=== PATIENT | female | born 1975 | race Caucasian/White ===

== ENCOUNTER 2017-01-22 15:19 | Inpatient (IN) | payer BC ==
[~2017-01-22] VITALS: Ht 160 cm; Wt 106.2 kg
[~2017-01-22 15:19] MED LIST: HYCODAN SYRUP480 ML PO; NAPROXEN500 MG PO; NORCO 5/3251 TABLET PO; ZITHROMAX250 MG PO
[2017-01-22 16:28] LABS: HEMATOCRIT 40.4 % (36.0-46.0); MCH 30.6 PG (29.0-34.0); MCHC 34.2 G/DL (30.0-36.0); MCV 89.6 FL (83-99); MEAN PLAT.VOLUME 11.3 uM^3 (9.5-12.4); PLATELET COUNT 193 K/uL (156-360); RBC DIS.WIDTH-CV 13.1 % (11.8-14.6); RBC DIS.WIDTH-SD 41.9 % (39-53); RED BLOOD COUNT 4.51 M/uL (3.80-5.20); WHITE BLOOD COUNT 16.6 K/uL (4.1-10.2)
[2017-01-22 16:42] LABS: CHLORIDE 106 mEq/L (99-109); POTASSIUM 3.9 mEq/L (3.7-5.4); SODIUM 141 mEq/L (136-147)
[2017-01-22 16:44] LABS: GLUCOSE 109 mg/dL (70-99)
[2017-01-22 16:46] LABS: ANION GAP 9 MEQ/L (2-14)
[2017-01-22 16:48] LABS: GFR ESTIMATE (CALCULATED) > 59 mL/min/
[2017-01-22 16:53] LABS: TROP-I INTERPRETATION NEGATIVE; TROPONIN-I 0.04 ng/mL (0.0-0.30)
[2017-01-22 17:24] LABS: UREA NITROGEN (BUN) 12 mg/dL (9-23)
[2017-01-22 17:33] LABS: QUANTITATIVE HCG < 4.0 MIU/ML
[2017-01-22 22:13] VITALS: BP 118/55
[2017-01-22 22:45] LABS: TROP-I INTERPRETATION NEGATIVE; TROPONIN-I 0.07 ng/mL (0.0-0.30)
[2017-01-23] VITALS (21 sets, daily range): BP systolic 119–163; BP diastolic 51–98
[2017-01-23 03:01] LABS: HEMATOCRIT 40.9 % (36.0-46.0); MCH 30.6 PG (29.0-34.0); MCHC 33.7 G/DL (30.0-36.0); MCV 90.7 FL (83-99); MEAN PLAT.VOLUME 11.7 uM^3 (9.5-12.4); PLATELET COUNT 211 K/uL (156-360); RBC DIS.WIDTH-CV 13.3 % (11.8-14.6); RBC DIS.WIDTH-SD 43.1 % (39-53); RED BLOOD COUNT 4.51 M/uL (3.80-5.20); WHITE BLOOD COUNT 15.4 K/uL (4.1-10.2)
[2017-01-23 03:12] LABS: PTT 27.4 (25-32)
[2017-01-23 03:14] LABS: CHLORIDE 106 mEq/L (99-109); POTASSIUM 4.3 mEq/L (3.7-5.4); SODIUM 139 mEq/L (136-147)
[2017-01-23 03:15] LABS: MAGNESIUM 2.1 mg/dL (1.3-2.7)
[2017-01-23 03:17] LABS: GLUCOSE 119 mg/dL (70-99)
[2017-01-23 03:18] LABS: ANION GAP 8 MEQ/L (2-14)
[2017-01-23 03:19] LABS: TOTAL BILIRUBIN 0.8 mg/dL (0.0-1.0)
[2017-01-23 03:20] LABS: ALKALINE PHOSPHATASE 63 IU/L (3-129)
[2017-01-23 03:21] LABS: GFR ESTIMATE (CALCULATED) > 59 mL/min/
[2017-01-23 03:22] LABS: TROP-I INTERPRETATION NEGATIVE; TROPONIN-I 0.09 ng/mL (0.0-0.30)
[2017-01-23 03:22] LABS: UREA NITROGEN (BUN) 11 mg/dL (9-23)
[2017-01-23 05:54] LABS: METH RESISTANT S AUREUS PCR NEGATIVE (NEGATIVE)
[2017-01-23 05:55] LABS: PROBE CHECK PASS; SPECIMEN PROCESSING CONTROL PASS
[2017-01-23 08:35] LABS: FASTING STATUS FASTING
[2017-01-23 09:02] LABS: HDL CHOLESTEROL 32 MG/DL (Desirable>=50); LDL CHOLESTEROL 109 mg/dL (Desirable<100); NON-HDL CHOLESTEROL 166 mg/dL (Desirable<160); TOTAL CHOLESTEROL 198 mg/dL (Desirable<200); TRIGLYCERIDES 286 MG/DL (Normal: <150)
[2017-01-23 09:29] LABS: CREATINE KINASE 100 IU/L (1-294); TOTAL CK 100 IU/L (1-294)
[2017-01-23 09:33] LABS: TROP-I INTERPRETATION NEGATIVE; TROPONIN-I 0.12 ng/mL (0.0-0.30)
[2017-01-23 09:34] LABS: CK-MB 1.8 ng/mL (0.0-4.9)
[2017-01-23 19:50] LABS: CREATINE KINASE 103 IU/L (1-294); TOTAL CK 103 IU/L (1-294)
[2017-01-23 19:55] LABS: TROP-I INTERPRETATION NEGATIVE; TROPONIN-I 0.23 ng/mL (0.0-0.30)
[2017-01-23 20:12] LABS: CK-MB 2.3 ng/mL (0.0-4.9)
[2017-01-24] VITALS (12 sets, daily range): BP systolic 129–169; BP diastolic 61–91
[2017-01-24 08:04] LABS: Estimated Average Glucose 126 mg/dL (70-123)
[2017-01-24 08:45] LABS: TROP-I INTERPRETATION NEGATIVE; TROPONIN-I 0.15 ng/mL (0.0-0.30)
[2017-01-24 08:49] LABS: CREATINE KINASE 103 IU/L (1-294); TOTAL CK 103 IU/L (1-294)
[2017-01-24 09:17] LABS: CK-MB 1.3 ng/mL (0.0-4.9)
[2017-01-24] MEDS ORDERED: ASPIR 8181 M1 PO (11:40)
[2017-01-24] MEDS ORDERED: EFFIENT10 MG PO (11:40)
[2017-01-24] MEDS ORDERED: LISINOPRIL10 MG PO (11:40)
[2017-01-24] MEDS ORDERED: ATORVASTATIN CA40 MG PO (11:40)
[2017-01-24] MEDS ORDERED: LOPRESSOR25 MG PO (11:40)
[2017-01-24] MEDS ORDERED: NITROSTAT0.4 MG SL (11:40)
[2017-01-24] MEDS ORDERED: CHANTIX1 EACH PO (11:40)
== END 2017-01-24 15:39 | disposition home or self-care (01) | DRG 247 ==
LOC: EME → EDBD 15:19 → EDOF 20:30 → 5WEST 21:34 → 4WEST 01-23 04:15
PROVIDERS: Family Medicine; Internal Medicine Interventional Cardiology; Physician Assistant; Physician Assistant Medical
DX: I21.09 ST elevation (STEMI) myocardial infarction involving other coronary artery of anterior wall (principal); I25.10 Atherosclerotic heart disease of native coronary artery without angina pectoris; E66.9 Obesity, unspecified; Z68.41 Body mass index [BMI] 40.0-44.9, adult; I10 Essential (primary) hypertension; F17.210 Nicotine dependence, cigarettes, uncomplicated; D72.829 Elevated white blood cell count, unspecified; Z71.6 Tobacco abuse counseling
CPT/HCPCS: 71020; 80048; 80053; 80061; 82550; 82550 91; 82553; 83036; 83735; 84484; 84702; 85027; 85347; 85610; 85730; 86850; 86900; 86901; 87641; 93005; 94799; 99281; 99285; C1769; C1874; C1887; G0378; J1644; J2250; J2405; J3010; J7030

== ENCOUNTER 2017-12-20 13:41 | Inpatient (IN) | payer OTHER ==
[~2017-12-20] VITALS: Ht 157.5 cm; Wt 101.0 kg
[~2017-12-20 13:41] MED LIST changes: +ASPIR 8181 M1 PO; +ATORVASTATIN CA40 MG PO; +CHANTIX1 EACH PO; +EFFIENT10 MG PO; +LISINOPRIL10 MG PO; +LOPRESSOR25 MG PO; +NITROSTAT0.4 MG SL
[2017-12-20 14:53] LABS: HEMATOCRIT 40.9 % (36.0-46.0); MCH 31.3 PG (29.0-34.0); MCHC 34.2 G/DL (30.0-36.0); MCV 91.3 FL (83-99); PLATELET COUNT 204 K/uL (156-360); RBC DIS.WIDTH-CV 12.5 % (11.8-14.6); RBC DIS.WIDTH-SD 41.4 % (39-53); RED BLOOD COUNT 4.48 M/uL (3.80-5.20); WHITE BLOOD COUNT 16.3 K/uL (4.1-10.2)
[2017-12-20 15:02] LABS: CHLORIDE 107 mEq/L (99-109); SODIUM 138 mEq/L (136-147)
[2017-12-20 15:04] LABS: GLUCOSE 112 mg/dL (70-99); TOTAL PROTEIN 6.5 g/dL (6.4-8.3)
[2017-12-20 15:06] LABS: TOTAL BILIRUBIN 1.1 mg/dL (0.0-1.0)
[2017-12-20 15:07] LABS: ALKALINE PHOSPHATASE 65 IU/L (3-129)
[2017-12-20 15:08] LABS: CREATININE 0.7 mg/dL (0.6-1.3); GFR ESTIMATE (CALCULATED) > 59 mL/min/
[2017-12-20 15:09] LABS: AST (GOT) 13 IU/L (2-34); UREA NITROGEN (BUN) 13 mg/dL (9-23)
[2017-12-20 15:11] LABS: ALT (GPT) 21 IU/L (3-49); LIPASE 10 U/L (1.0-51.0)
[2017-12-20 15:18] LABS: TROP-I INTERPRETATION NEGATIVE; TROPONIN-I < 0.01 ng/mL (0.0-0.30)
[2017-12-20 15:19] LABS: QUANTITATIVE HCG < 4.0 MIU/ML
[2017-12-20 18:45] LABS: APPEARANCE SL.HAZY ((CLEAR)); BILIRUBIN NEGATIVE; BLOOD NEGATIVE; COLOR YELLOW ((YELLOW)); GLUCOSE (STRIP) NEGATIVE; KETONES NEGATIVE; LEUKOCYTES NEGATIVE; NITRITE NEGATIVE; PROTEIN (STRIP) 30; SPECIFIC GRAVITY 1.023 (1.000-1.030); UROBILINOGEN 0.2 MG/DL (0.2-1.0)
[2017-12-20 19:16] LABS: BACTERIA 1+ /HPF; EPITHELIAL CELLS 1+ /HPF; MUCUS TRACE /LPF; RED BLOOD CELLS 0-5 /HPF (0-5); UCUL ADDED? NO; WHITE BLOOD CELLS 0-5 /HPF (0-5)
[2017-12-20] MEDS ORDERED: LISINOPRIL5 MG PO (19:48)
[2017-12-20] MEDS ORDERED: METOPROLOL SUCC25 MG PO (19:49)
[2017-12-20] MEDS ORDERED: ASPIR-TRIN325 M1 PO (19:51)
[2017-12-20] MEDS ORDERED: VITAMIN D5000 UNI1 PO (19:54)
[2017-12-20] MEDS ORDERED: CYANOCOBALAM1000 MCG PO (19:54)
[2017-12-20 21:56] VITALS: BP 130/63
[2017-12-21 07:00] VITALS: BP 96/52
[2017-12-21 07:03] LABS: HEMATOCRIT 35.8 % (36.0-46.0); MCH 30.5 PG (29.0-34.0); MCHC 32.7 G/DL (30.0-36.0); MCV 93.5 FL (83-99); PLATELET COUNT 171 K/uL (156-360); RBC DIS.WIDTH-CV 12.8 % (11.8-14.6); RBC DIS.WIDTH-SD 43.3 % (39-53); RED BLOOD COUNT 3.83 M/uL (3.80-5.20); WHITE BLOOD COUNT 11.2 K/uL (4.1-10.2)
[2017-12-21 07:05] LABS: HEMOGLOBIN 11.7 G/DL (11.9-15.5)
[2017-12-21 07:16] LABS: CHLORIDE 107 MEQ/L (99-109); CREATININE 0.7 MG/DL (0.6-1.3); GFR ESTIMATE (CALCULATED) > 59 mL/min/; GLUCOSE 94 mg/dL (70-99); POTASSIUM 3.8 MEQ/L (3.7-5.4); SODIUM 139 MEQ/L (136-147); UREA NITROGEN (BUN) 11 mg/dL (9-23)
[2017-12-21 11:59] VITALS: BP 127/71
[2017-12-21 16:02] VITALS: BP 119/58
[2017-12-21 20:19] VITALS: BP 126/57
[2017-12-22 03:33] VITALS: BP 106/54
[2017-12-22 06:39] LABS: HEMATOCRIT 32.4 % (36.0-46.0); HEMOGLOBIN 10.8 G/DL (11.9-15.5); MCH 30.7 PG (29.0-34.0); MCHC 33.3 G/DL (30.0-36.0); PLATELET COUNT 173 K/uL (156-360); RBC DIS.WIDTH-CV 12.4 % (11.8-14.6); RBC DIS.WIDTH-SD 41.1 % (39-53); RED BLOOD COUNT 3.52 M/uL (3.80-5.20); WHITE BLOOD COUNT 12.7 K/uL (4.1-10.2)
[2017-12-22 07:03] LABS: CHLORIDE 107 MEQ/L (99-109); CREATININE 0.7 MG/DL (0.6-1.3); GFR ESTIMATE (CALCULATED) > 59 mL/min/; GLUCOSE 118 mg/dL (70-99); POTASSIUM 4.3 MEQ/L (3.7-5.4); SODIUM 140 MEQ/L (136-147); UREA NITROGEN (BUN) 10 mg/dL (9-23)
[2017-12-22 09:15] VITALS: BP 115/60
[2017-12-22 12:32] VITALS: BP 106/56
[2017-12-22 16:09] VITALS: BP 103/54
[2017-12-22 19:32] VITALS: BP 100/50
[2017-12-22 23:24] VITALS: BP 101/53
[2017-12-23 03:38] VITALS: BP 100/50
[2017-12-23 06:39] LABS: HEMOGLOBIN 9.7 G/DL (11.9-15.5); MCH 30.6 PG (29.0-34.0); MCHC 32.3 G/DL (30.0-36.0); MCV 94.6 FL (83-99); PLATELET COUNT 152 K/uL (156-360); RBC DIS.WIDTH-CV 12.8 % (11.8-14.6); RBC DIS.WIDTH-SD 44.2 % (39-53); RED BLOOD COUNT 3.17 M/uL (3.80-5.20); WHITE BLOOD COUNT 10.9 K/uL (4.1-10.2)
[2017-12-23 07:08] LABS: CHLORIDE 106 MEQ/L (99-109); CREATININE 0.7 MG/DL (0.6-1.3); GFR ESTIMATE (CALCULATED) > 59 mL/min/; GLUCOSE 89 mg/dL (70-99); POTASSIUM 3.8 MEQ/L (3.7-5.4); SODIUM 139 MEQ/L (136-147); UREA NITROGEN (BUN) 12 mg/dL (9-23)
[2017-12-23 08:48] VITALS: BP 117/66
[2017-12-23 16:22] VITALS: BP 100/50
[2017-12-23] MEDS ORDERED: DOCUSATE SODIU100 MG PO (19:28)
[2017-12-23] MEDS ORDERED: HYDROCODON-ACE1 EAC7 PO (19:28)
== END 2017-12-23 20:35 | disposition home or self-care (01) | DRG 342 ==
LOC: EME 13:41 → 2EAST 20:24 → EDOF 20:24 → ENRESERV 20:45 → 2EAST 21:48 → ENPENDDIS 12-23 → 2EAST 12-23 20:35
PROVIDERS: Thoracic Surgery (Cardiothoracic Vascular Surgery)
PROC: 0DTJ0ZZ Resection of Appendix, Open Approach (ICD-10-PCS; principal; 2017-12-21)
DX: K35.80 Unspecified acute appendicitis (principal); I25.10 Atherosclerotic heart disease of native coronary artery without angina pectoris; I25.2 Old myocardial infarction; Z95.5 Presence of coronary angioplasty implant and graft; I10 Essential (primary) hypertension; E78.5 Hyperlipidemia, unspecified; E66.9 Obesity, unspecified; Z68.41 Body mass index [BMI] 40.0-44.9, adult; F17.210 Nicotine dependence, cigarettes, uncomplicated; F41.9 Anxiety disorder, unspecified; Z79.02 Long term (current) use of antithrombotics/antiplatelets; Z79.82 Long term (current) use of aspirin; Z87.442 Personal history of urinary calculi; Z82.49 Family history of ischemic heart disease and other diseases of the circulatory system
CPT/HCPCS: 71046; 74177; 80048; 80053; 81003; 83690; 84484; 84702; 85027; 86850; 86900; 86901; 86920; 88304; 93005; 99281; 99285; J0131; J1100; J1170; J1644; J1885; J2250; J2270; J2405; J2543; J2710; J3010; J7030; J7050; J7120